=== PATIENT | male | born 1960 | race Caucasian/White ===

== ENCOUNTER 2025-01-31 17:19 | Emergency (ER) | payer BC, MEDICARE ==
--- NOTE | 2025-01-31 19:23 | ED ---
Upper Extremity HPI - General Chief Complaint: Extremity Injury, Upper Stated Complaint: Left finger injury Time Seen by Provider: 01/31/25 18:00 Source: patient, family, RN notes reviewed Mode of arrival: ambulatory Limitations: no limitations - History of Present Illness Initial Comments: 64-year-old male presenting for left finger amputation 2 hours ago. States he accidentally cut off the distal part of his left ring finger while using a log splitter. Denies blood thinners, states he only takes baby aspirin daily. Last tetanus was 3 years ago. No other injuries. Patient is right-hand dominant. - Related Data Previous Rx's Medication Instructions Recorded Cephalexin [Keflex] 500 mg PO Q6HR 7 Days #28 cap 01/31/25 Allergies Allergy/AdvReac Type Severity Reaction Status Date / Time Sulfa (Sulfonamide Allergy Rash/Hives Verified 01/31/25 17:58 Antibiotics) Review of Systems ROS Statement: Those systems with pertinent positive or pertinent negative responses have been documented in the HPI. ROS Other: All systems not noted in ROS Statement are negative. Past Medical History Past Medical History: Hyperlipidemia, Hypertension Past Surgical History: No Surgical Hx Reported Smoking Status: Never smoker General Exam Limitations: no limitations General appearance: alert, in no apparent distress Head exam: Present: atraumatic, normocephalic, normal inspection Left Forearm Wrist exam: Present: normal inspection, full ROM. Absent: tenderness, swelling Hand Wrist exam: Present: full ROM, tenderness. Absent: normal inspection (Left fourth digit amputation of distal phalanx with bone exposure and active bleeding. Amputation is distal to DIP joint. DIP range of motion intact) Vascular: Present: normal capillary refill, radial pulse. Absent: vascular compromise Neurological exam: Present: alert, oriented X3 Psychiatric exam: Present: normal affect, normal mood Skin exam: Present: warm, dry, intact, normal color. Absent: rash Course Vital Signs 01/31/25 01/31/25 17:55 21:07 Temperature 97.9 F 98.2 F Pulse Rate 66 64 Respiratory 16 18 Rate Blood Pressure 187/82 196/94 O2 Sat by Pulse 98 98 Oximetry Medical Decision Making - Medical Decision Making Was pt. sent in by a medical professional or institution (, PA, THEATRICAL VARIETY AGENT, urgent care, hospital, or [facility]...) When possible be specific @ -No Did you speak to anyone other than the patient for history (EMS, parent, family, police, friend...)? What history was obtained from this source @ -No Did you review nursing and triage notes (agree or disagree)? Why? @ -I reviewed and agree with nursing and triage notes Were old charts reviewed (outside hosp., previous admission, EMS record, old EKG, old radiological studies, urgent care reports/EKG's, [facility] records)? Report findings @ -No old charts were reviewed Differential Diagnosis (chest pain, altered mental status, abdominal pain women, abdominal pain men, vaginal bleeding, weakness, fever, dyspnea, syncope, headache, dizziness, GI bleed, back pain, seizure, CVA, palpatations, mental health, musculoskeletal)? @ -Differential Musculoskeletal Muscular strain, contusion, ligament sprain, fracture, arthritis, septic arthritis, bursitis, cellulitis, muscle spasm, nerve compression, DVT, arterial occlusion, herpes zoster, electrolyte abnormality, tumor.... This is not meant to be in all inclusive list EKG interpreted by me (3pts min.). @ -None X-rays interpreted by me (1pt min.). @ -X-ray left hand reveals acute fracture of distal phalanx of fourth digit with soft tissue injury CT interpreted by me (1pt min.). @ -None done U/S interpreted by me (1pt. min.). @ -None done What testing was considered but not performed or refused? (CT, X-rays, U/S, labs)? Why? @ -None What meds were considered but not given or refused? Why? @ -None Did you discuss the management of the patient with other professionals (professionals i.e. , PA, THEATRICAL VARIETY AGENT, lab, RT, psych nurse, social insurance adviser, print decorator, te acher, security patrol officer, family preservation caseworker)? Give summary @ -I spoke with Dr. Varela on-call orthopedic who recommends consulting hand surgeon. I then spoke with Dr. Zapata who recommends antibiotics and outpatient follow-up in office tomorrow where patient will likely undergo procedure at that time Was smoking cessation discussed for >3mins.? @ -No Was critical care preformed (if so, how long)? @ -No Were there social determinants of health that impacted care today? How? (Homelessness, low income, unemployed, alcoholism, drug addiction, transportation, low edu. Level, literacy, decrease access to med. care, fdc, rehab)? @ -No Was there de-escalation of care discussed even if they declined (Discuss DNR or withdrawal of care, Hospice)? DNR status @ -No What co-morbidities impacted this encounter? (DM, HTN, Smoking, COPD, CAD, Cancer, CVA, ARF, Chemo, Hep., AIDS, mental health diagnosis, sleep apnea, morbid obesity)? @ -None Was patient admitted / discharged? Hospital course, mention meds given and route, prescriptions, significant lab abnormalities, going to OR and other pertinent info. @ -Discharge. 64-year-old male presenting for left fourth digit distal amputation 2 hours prior to arrival. Denies blood thinners. Tetanus within the last 5 years. Patient was started on IV antibiotics. X-ray left hand reveals acute fracture of distal phalanx of fourth digit with soft tissue injury. Wound was thoroughly irrigated and dressed appropriately. Patient will follow-up with Dr. Zapata tomorrow who states she will perform hand procedure to close wound. Patient is agreeable to plan. Appropriate return precautions/supportive care discussed. All questions answered at bedside. Patient was discharged with Tylenol 3 starter pack and prescription for Keflex. Case was discussed with my ED attending Dr. Reyes. Undiagnosed new problem with uncertain prognosis? @ -No Drug Therapy requiring intensive monitoring for toxicity (Heparin, Nitro, Insulin, Cardizem)? @ -No Were any procedures done? @ -No Diagnosis/symptom? @ -Left distal fourth digit amputation Acute, or Chronic, or Acute on Chronic? @ -Acute Uncomplicated (without systemic symptoms) or Complicated (systemic symptoms)? @ -Uncomplicated Side effects of treatment? @ -No Exacerbation, Progression, or Severe Exacerbation? @ -No Poses a threat to life or bodily function? How? (Chest pain, [place], [place], pneumonia, PE, COPD, DKA, ARF, appy, cholecystitis, CVA, Diverticulitis, Homicidal, Suicidal, threat to staff... and all critical care pts) @ -Not at this time Disposition Clinical Impression: Traumatic amputation of tip of left ring finger Disposition: HOME SELF-CARE Condition: Stable Instructions (If sedation given, give patient instructions): Finger Amputation (ED) Additional Instructions: You will receive a call from hand surgeon Dr. Zapata's office tomorrow morning to schedule an appointment for tomorrow. You will likely undergo procedure tomorrow. As discussed, you can either choose local sedation or conscious sedation. If you choose conscious sedation, do not eat or drink anything after midnight tonight. Take Tylenol threes as needed for pain. Take antibiotic as directed. Please return to the Emergency Department if symptoms worsen or any other concerns. Prescriptions: Cephalexin [Keflex] 500 mg PO Q6HR 7 Days #28 cap Is patient prescribed a controlled substance at d/c from ED?: No Referrals: Kris Ridley DO [Primary Care Provider] - 1-2 days Time of Disposition: 20:59
--- NOTE | 2025-01-31 19:26 | XR ---
EXAMINATION TYPE: XR hand complete LT DATE OF EXAM: 01/31/2025 7:05 PM COMPARISON: None CLINICAL INDICATION: Male, 64 years old with history of left distal finger amputation; PHH, pain TECHNIQUE: XR hand complete LT 3 views were obtained. FINDINGS: Soft tissue injury involving the fourth digit distal phalanx with fracture of the tuft. The remainder of the osseous structures appear intact. No radiopaque foreign bodies. IMPRESSION: Acute fracture of the distal phalanx of the fourth digit with soft tissue injury. No radiopaque from arteries. [facility], , 01/31/2025 7:24 PM
[2025-01-31] MEDS: ceFAZolin 2 GM in DEXTROSE 5% IN WATER 50 ML IVPB ONE (19:31)
[2025-01-31] MEDS: KETOROLAC 15 MG/ML 1 ML VIAL IVP STA (20:09)
[2025-01-31] MEDS ORDERED: DIPH,PERTUS(ACELL)TETVAC-LF 0.5 ML VIAL IM ONE (20:55)
[2025-01-31] MEDS: ACET/COD 300 MG/30 MG STARTER PACK 6 TAB BTL PO STA (21:03)
[2025-01-31 21:09] VITALS: BP 196/94; PULSE 64; RESP 18; TEMP 98.2
== END 2025-01-31 21:09 | disposition home or self-care (01) ==
LOC: EC 17:19
DX: S68.125A Partial traumatic metacarpophalangeal amputation of left ring finger, initial encounter (principal); Z88.2 Allergy status to sulfonamides; W26.8XXA Contact with other sharp object(s), not elsewhere classified, initial encounter
CPT/HCPCS: 73130; 99283; 96365; J0690